=== PATIENT | male | born 1975 | race African-American/Black ===

== ENCOUNTER 2021-05-04 09:35 | Observation (INO) | payer BC ==
--- NOTE | 2021-05-04 09:42 | Event Note ---
ED Screening Note ED Screening Note: Woke up at 5A with right side facial weakness; last known pt can close both eyes voice slurred on arrival r facial weakness. right hand grasp and pedal pushes weak hx DM BG 395 no prior cva This initial assessment/diagnostic orders/clinical plan/treatment(s) is/are subject to change based on patients health status, clinical progression and re- assessment by fellow clinical providers in the ED. Further treatment and workup at subsequent clinical providers discretion. Patient/guardian urged not to elope from the ED as their condition may be serious if not clinically assessed and managed. Initial orders include: code stroke
--- NOTE | 2021-05-04 09:47 | Emergency Department Report ---
ED Neuro Deficit HPI - General Chief Complaint: Neuro Symptoms/Deficit Stated Complaint: POSSIBLE STROKE Time Seen by Provider: 05/04/21 09:39 Source: patient Mode of arrival: Ambulatory Limitations: No Limitations - History of Present Illness Initial Comments: Patient is 46 years old male with history of hypertension. Patient presented to the ER complaining of right facial droop and right upper and lower extremity numbness and weakness. Patient stated that he went to bed last night around 9 PM in his good health. Patient denied any speech problem. He also denied any ataxia or visual symptoms. Patient complaining of occipital headache. Code stroke immediately initiated and patient moved to CT for stat CT brain without contrast. Stroke telemetry neurology immediately consulted. - Related Data Home Medications: Previous Rx's Medication Instructions Recorded Last Taken Type Aspirin [Aspirin BABY CHEW TAB] 81 mg PO QDAY #30 tab.chew 05/05/21 Unknown Rx Prednisone [predniSONE 10 mg 10 mg PO .TAPER #1 tab.ds.pk 05/05/21 Unknown Rx (6-Day Pack, 21 Tabs)] Simvastatin 10 mg PO QHS #30 tablet 05/05/21 Unknown Rx Allergies/Adverse Reactions: Allergies Allergy/AdvReac Type Severity Reaction Status Date / Time No Known Allergies Allergy Unverified 05/04/21 09:42 ED Review of Systems ROS: Stated complaint: POSSIBLE STROKE Other details as noted in HPI Comment: All other systems reviewed and negative Constitutional: denies: chills, fever Respiratory: denies: cough, shortness of breath, SOB with exertion Cardiovascular: denies: chest pain, palpitations Gastrointestinal: denies: abdominal pain, nausea, vomiting Neurological: headache, weakness, numbness ED Past Medical Hx - Past Medical History Previous Medical History?: Yes Hx Hypertension: Yes - Surgical History Past Surgical History?: No - Medications Home Medications: Home Medications Medication Instructions Recorded Confirmed Last Taken Type Aspirin [Aspirin BABY CHEW TAB] 81 mg PO QDAY #30 tab.chew 05/05/21 Unknown Rx Prednisone [predniSONE 10 mg 10 mg PO .TAPER #1 tab.ds.pk 05/05/21 Unknown Rx (6-Day Pack, 21 Tabs)] Simvastatin 10 mg PO QHS #30 tablet 05/05/21 Unknown Rx ED Neuro Physical Exam - General Limitations: No Limitations General appearance: alert, in no apparent distress Suspected Stroke: Yes - Head Head exam: Present: atraumatic, normocephalic, normal inspection - Eye Eye exam: Present: normal appearance, PERRL - ENT ENT exam: Present: normal exam, normal orophraynx, mucous membranes moist - Neck Neck exam: Present: normal inspection, full ROM. Absent: tenderness, meningismus - Respiratory Respiratory exam: Present: normal lung sounds bilaterally - Cardiovascular Cardiovascular Exam: Present: regular rate, normal rhythm, normal heart sounds - GI/Abdominal GI/Abdominal exam: Present: soft, normal bowel sounds. Absent: distended, tenderness, guarding, rebound, rigid, organomegaly, mass, bruit, pulsatile mass, hernia - Extremities Exam Extremities exam: Present: normal inspection, full ROM, normal capillary refill. Absent: tenderness - Back Exam Back exam: Present: normal inspection, full ROM. Absent: CVA tenderness (R) - Neurological Exam Neurological exam: Present: alert, oriented X3. Absent: CN II-XII intact - NIHSS Assessment Interval: Baseline 1a. Level of Consciousness: alert/keenly responsive 1b. LOC Questions: answers both correctly 1c. LOC Commands: performs tasks correctly 2. Best Gaze: normal 3. Visual: no visual loss 4. Facial Palsy: partial paralysis 5b. Motor Arm Right: no drift 5a. Motor Arm Left: no drift 6a. Motor Leg Left: no drift 6b. Motor Leg Right: no drift 7. Limb Ataxia: absent 8. Sensory: normal 9. Best Language: no aphasia 10. Dysarthria: normal 11. Extinction/Inattention: no abnormality Total Score: 2 Stroke Severity: Minor Stroke - Psychiatric Psychiatric exam: Present: normal mood - Skin Skin exam: Present: warm, intact, normal color ED Course Vital Signs 05/04/21 05/04/21 05/04/21 10:26 10:30 10:35 Temperature Pulse Rate 89 84 Respiratory 14 16 Rate Blood Pressure 158/99 162/102 Blood Pressure [Left] O2 Sat by Pulse 96 94 94 Oximetry 05/04/21 05/04/21 05/04/21 10:40 10:45 10:49 Temperature Pulse Rate 88 81 Respiratory 13 15 Rate Blood Pressure 176/90 Blood Pressure [Left] O2 Sat by Pulse 97 95 100 Oximetry 05/04/21 05/04/21 05/04/21 10:50 10:56 12:56 Temperature Pulse Rate 85 101 H 83 Respiratory 13 24 13 Rate Blood Pressure 169/108 169/108 131/90 Blood Pressure [Left] O2 Sat by Pulse 97 95 94 Oximetry 05/04/21 05/04/21 05/04/21 13:00 13:06 13:10 Temperature Pulse Rate 81 85 82 Respiratory 16 13 16 Rate Blood Pressure 133/92 133/92 133/92 Blood Pressure [Left] O2 Sat by Pulse 95 96 Oximetry 05/04/21 05/04/21 05/04/21 14:26 14:30 14:36 Temperature Pulse Rate 102 H 76 74 Respiratory 15 14 14 Rate Blood Pressure 133/92 136/73 136/73 Blood Pressure [Left] O2 Sat by Pulse 97 94 96 Oximetry 05/04/21 05/04/21 05/04/21 14:40 14:46 14:50 Temperature Pulse Rate 76 90 88 Respiratory 13 12 10 L Rate Blood Pressure 136/73 136/73 136/73 Blood Pressure [Left] O2 Sat by Pulse 96 97 95 Oximetry 05/04/21 05/04/21 05/04/21 14:56 15:00 15:06 Temperature Pulse Rate 76 76 76 Respiratory 10 L 14 15 Rate Blood Pressure 136/73 138/89 133/92 Blood Pressure [Left] O2 Sat by Pulse 95 94 91 Oximetry 05/04/21 05/04/21 05/04/21 15:10 15:16 15:20 Temperature Pulse Rate 78 76 79 Respiratory 14 11 L 13 Rate Blood Pressure 133/92 136/73 136/73 Blood Pressure [Left] O2 Sat by Pulse 95 96 95 Oximetry 05/04/21 05/04/21 05/04/21 15:26 15:30 15:36 Temperature Pulse Rate 79 78 78 Respiratory 19 13 16 Rate Blood Pressure 136/73 129/91 129/91 Blood Pressure [Left] O2 Sat by Pulse 96 94 95 Oximetry 05/04/21 05/04/21 05/04/21 15:40 15:46 15:50 Temperature Pulse Rate 81 80 79 Respiratory 14 14 14 Rate Blood Pressure 129/91 129/91 129/91 Blood Pressure [Left] O2 Sat by Pulse 94 96 94 Oximetry 05/04/21 05/04/21 05/04/21 15:56 16:00 16:06 Temperature Pulse Rate 74 76 76 Respiratory 13 14 15 Rate Blood Pressure 129/91 129/91 134/86 Blood Pressure [Left] O2 Sat by Pulse 94 93 94 Oximetry 05/04/21 05/04/21 05/04/21 16:10 16:16 16:20 Temperature Pulse Rate 76 73 82 Respiratory 12 14 11 L Rate Blood Pressure 134/86 129/91 129/91 Blood Pressure [Left] O2 Sat by Pulse 92 95 95 Oximetry 05/04/21 05/04/21 05/04/21 16:26 16:30 16:36 Temperature Pulse Rate 79 79 77 Respiratory 19 20 16 Rate Blood Pressure 129/91 151/95 151/95 Blood Pressure [Left] O2 Sat by Pulse 95 96 95 Oximetry 05/04/21 05/04/21 05/04/21 16:40 16:46 16:50 Temperature Pulse Rate 82 81 76 Respiratory 11 L 12 17 Rate Blood Pressure 151/95 151/95 151/95 Blood Pressure [Left] O2 Sat by Pulse 95 95 94 Oximetry 05/04/21 05/04/21 05/04/21 16:56 17:00 17:06 Temperature Pulse Rate 76 78 73 Respiratory 15 15 16 Rate Blood Pressure 151/95 137/88 137/88 Blood Pressure [Left] O2 Sat by Pulse 92 94 93 Oximetry 05/04/21 05/04/21 05/04/21 17:10 17:16 17:20 Temperature Pulse Rate 81 93 H 78 Respiratory 13 13 14 Rate Blood Pressure 137/88 137/88 137/88 Blood Pressure [Left] O2 Sat by Pulse 95 94 96 Oximetry 05/04/21 05/04/21 05/04/21 17:26 17:30 17:36 Temperature Pulse Rate 74 76 80 Respiratory 14 11 L 14 Rate Blood Pressure 137/88 128/92 128/92 Blood Pressure [Left] O2 Sat by Pulse 93 94 92 Oximetry 05/04/21 05/04/21 05/04/21 17:40 17:46 17:50 Temperature Pulse Rate 74 77 73 Respiratory 13 14 18 Rate Blood Pressure 128/92 128/92 128/92 Blood Pressure [Left] O2 Sat by Pulse 93 93 97 Oximetry 05/04/21 05/04/21 05/04/21 17:56 18:00 18:06 Temperature Pulse Rate 76 82 75 Respiratory 18 11 L 12 Rate Blood Pressure 128/92 136/91 136/91 Blood Pressure [Left] O2 Sat by Pulse 94 95 95 Oximetry 05/04/21 05/04/21 05/04/21 18:10 19:00 19:16 Temperature Pulse Rate 78 76 78 Respiratory 11 L 13 13 Rate Blood Pressure 136/91 142/91 142/91 Blood Pressure [Left] O2 Sat by Pulse 96 96 95 Oximetry 05/04/21 05/04/21 05/04/21 19:20 19:30 19:43 Temperature 98.5 F Pulse Rate 77 72 Respiratory 14 13 18 Rate Blood Pressure 132/86 Blood Pressure 142/91 [Left] O2 Sat by Pulse 97 94 97 Oximetry 05/04/21 05/04/21 05/04/21 19:46 20:00 20:16 Temperature Pulse Rate 79 78 96 H Respiratory 15 11 L 14 Rate Blood Pressure 132/86 137/93 137/93 Blood Pressure [Left] O2 Sat by Pulse 92 93 96 Oximetry 05/04/21 20:30 Temperature Pulse Rate 94 H Respiratory 15 Rate Blood Pressure 151/89 Blood Pressure [Left] O2 Sat by Pulse 97 Oximetry - Lab Data Result diagrams: 05/04/21 10:49 05/04/21 10:49 Lab Results 05/04/21 05/04/21 05/04/21 Range/Units 09:38 10:49 10:49 WBC 5.4 (4.5-11.0) K/mm3 RBC 5.29 H (3.65-5.03) M/mm3 Hgb 15.6 H (11.8-15.2) gm/dl Hct 46.8 H (35.5-45.6) % MCV 89 (84-94) fl MCH 30 (28-32) pg MCHC 34 (32-34) % RDW 13.6 (13.2-15.2) % Plt Count 199 (140-440) K/mm3 Lymph % (Auto) 30.3 (13.4-35.0) % Bonner % (Auto) 7.6 H (0.0-7.3) % Eos % (Auto) 2.2 (0.0-4.3) % Baso % (Auto) 0.6 (0.0-1.8) % Lymph # (Auto) 1.6 (1.2-5.4) K/mm3 Bonner # (Auto) 0.4 (0.0-0.8) K/mm3 Eos # (Auto) 0.1 (0.0-0.4) K/mm3 Baso # (Auto) 0.0 (0.0-0.1) K/mm3 Seg Neutrophils % 59.3 (40.0-70.0) % Seg Neutrophils # 3.2 (1.8-7.7) K/mm3 PT 12.9 (12.2-14.9) Sec. INR 0.88 (0.87-1.13) APTT 28.6 (24.2-36.6) Sec. Thrombin Time 16.7 (15.1-19.6) Sec. VBG pH (7.320-7.420) Sodium (137-145) mmol/L Potassium (3.6-5.0) mmol/L Chloride (98-107) mmol/L Carbon Dioxide (22-30) mmol/L Anion Gap mmol/L BUN (9-20) mg/dL Creatinine (0.8-1.3) mg/dL Estimated GFR ml/min BUN/Creatinine Ratio % Glucose (75-100) mg/dL POC Glucose 395 H (70-105) mg/dL Ketones Quantitative (Negative) Calcium (8.4-10.2) mg/dL Total Bilirubin (0.1-1.2) mg/dL AST (5-40) units/L ALT (7-56) units/L Alkaline Phosphatase (35-129) units/L Total Creatine Kinase (55-170) units/L CK-MB (CK-2) (0.0-4.0) ng/mL CK-MB (CK-2) Rel Index (0-4) Troponin T (0.00-0.029) ng/mL Total Protein (6.3-8.2) g/dL Albumin (3.9-5) g/dL Albumin/Globulin Ratio % 05/04/21 05/04/21 05/04/21 Range/Units 10:49 10:49 10:49 WBC (4.5-11.0) K/mm3 RBC (3.65-5.03) M/mm3 Hgb (11.8-15.2) gm/dl Hct (35.5-45.6) % MCV (84-94) fl MCH (28-32) pg MCHC (32-34) % RDW (13.2-15.2) % Plt Count (140-440) K/mm3 Lymph % (Auto) (13.4-35.0) % Bonner % (Auto) (0.0-7.3) % Eos % (Auto) (0.0-4.3) % Baso % (Auto) (0.0-1.8) % Lymph # (Auto) (1.2-5.4) K/mm3 Bonner # (Auto) (0.0-0.8) K/mm3 Eos # (Auto) (0.0-0.4) K/mm3 Baso # (Auto) (0.0-0.1) K/mm3 Seg Neutrophils % (40.0-70.0) % Seg Neutrophils # (1.8-7.7) K/mm3 PT (12.2-14.9) Sec. INR (0.87-1.13) APTT (24.2-36.6) Sec. Thrombin Time (15.1-19.6) Sec. VBG pH 7.404 (7.320-7.420) Sodium 134 L (137-145) mmol/L Potassium 4.2 (3.6-5.0) mmol/L Chloride 99.6 (98-107) mmol/L Carbon Dioxide 22 (22-30) mmol/L Anion Gap 17 mmol/L BUN 15 (9-20) mg/dL Creatinine 0.5 L (0.8-1.3) mg/dL Estimated GFR > 60 ml/min BUN/Creatinine Ratio 30 % Glucose 362 H (75-100) mg/dL POC Glucose (70-105) mg/dL Ketones Quantitative Negative (Negative) Calcium 8.8 (8.4-10.2) mg/dL Total Bilirubin 0.40 (0.1-1.2) mg/dL AST 12 (5-40) units/L ALT 19 (7-56) units/L Alkaline Phosphatase 106 (35-129) units/L Total Creatine Kinase 104 (55-170) units/L CK-MB (CK-2) 2.5 (0.0-4.0) ng/mL CK-MB (CK-2) Rel Index 2.4 (0-4) Troponin T < 0.010 (0.00-0.029) ng/mL Total Protein 7.3 (6.3-8.2) g/dL Albumin 4.0 (3.9-5) g/dL Albumin/Globulin Ratio 1.2 % 05/04/21 Range/Units 11:53 WBC (4.5-11.0) K/mm3 RBC (3.65-5.03) M/mm3 Hgb (11.8-15.2) gm/dl Hct (35.5-45.6) % MCV (84-94) fl MCH (28-32) pg MCHC (32-34) % RDW (13.2-15.2) % Plt Count (140-440) K/mm3 Lymph % (Auto) (13.4-35.0) % Bonner % (Auto) (0.0-7.3) % Eos % (Auto) (0.0-4.3) % Baso % (Auto) (0.0-1.8) % Lymph # (Auto) (1.2-5.4) K/mm3 Bonner # (Auto) (0.0-0.8) K/mm3 Eos # (Auto) (0.0-0.4) K/mm3 Baso # (Auto) (0.0-0.1) K/mm3 Seg Neutrophils % (40.0-70.0) % Seg Neutrophils # (1.8-7.7) K/mm3 PT (12.2-14.9) Sec. INR (0.87-1.13) APTT (24.2-36.6) Sec. Thrombin Time (15.1-19.6) Sec. VBG pH (7.320-7.420) Sodium (137-145) mmol/L Potassium (3.6-5.0) mmol/L Chloride (98-107) mmol/L Carbon Dioxide (22-30) mmol/L Anion Gap mmol/L BUN (9-20) mg/dL Creatinine (0.8-1.3) mg/dL Estimated GFR ml/min BUN/Creatinine Ratio % Glucose (75-100) mg/dL POC Glucose 282 H (70-105) mg/dL Ketones Quantitative (Negative) Calcium (8.4-10.2) mg/dL Total Bilirubin (0.1-1.2) mg/dL AST (5-40) units/L ALT (7-56) units/L Alkaline Phosphatase (35-129) units/L Total Creatine Kinase (55-170) units/L CK-MB (CK-2) (0.0-4.0) ng/mL CK-MB (CK-2) Rel Index (0-4) Troponin T (0.00-0.029) ng/mL Total Protein (6.3-8.2) g/dL Albumin (3.9-5) g/dL Albumin/Globulin Ratio % - EKG Data -: EKG Interpreted by Me EKG shows normal: sinus rhythm Rate: normal Interpretation: no acute changes - Radiology Data Radiology results: report reviewed - Medical Decision Making Patient is 46 years old male with history of hypertension. Patient presented to the ER complaining of right facial droop and right upper and lower extremity numbness and weakness. Patient stated that he went to bed last night around 9 PM in his good health. Patient denied any speech problem. He also denied any a taxia or visual symptoms. Patient complaining of occipital headache. Code stroke immediately initiated and patient moved to CT for stat CT brain without contrast. Stroke telemetry neurology immediately consulted. Patient is not a TPA candidate since the onset is more than 4.5 hours. CTA neck and head is unremarkable. I discussed the patient with Dr. Begum, he agreed to admit the patient to [facility] service for further management. Critical Care Time: Yes Critical care time in (mins) excluding proc time.: 35 Critical care attestation.: If time is entered above; I have spent that time in minutes in the direct care of this critically ill patient, excluding procedure time. ED Disposition Clinical Impression: Acute CVA (cerebrovascular accident), Acute headache Disposition: ADMITTED INPATIENT Is pt being admited?: Yes Condition: Stable
--- NOTE | 2021-05-04 09:52 | Consultation ---
History of Present Illness - Reason for Consult Consult date: 05/04/21 - History of Present Illness [facility] Consult Note # Demographics Consult Type: Acute Stroke Level 2 (4.5-24 hrs) Patient Location: Emergency Room First Name: Otis Last Name: Quinn Date of : 1975 Age: 46 Gender: Male Facility: [facility] Time of Initial Page ( Time): 05/04/2021, 09:43 Time of Return Call ( Time): 05/04/2021, 09:43 # HPI History: 46yo man who presented with right face and arm weakness. He was LKN at 9PM. he awoke at 5Am with these issues as well as headache. He also has left tongue numbness. # Scores Time of exam and NIHSS (): 05/04/2021, 09:46 Level of Consciousness 1a: [0] = Alert; keenly responsive LOC Questions 1b: [0] = Answers both questions correctly LOC Commands 1c: [0] = Performs both tasks correctly Best Gaze 2: [0] = Normal Visual 3: [0] = No visual loss Facial Palsy 4: [1] = Minor paralysis Motor Arm Left 5a: [0] = No drift Motor Arm Right 5b: [0] = No drift Motor Leg Left 6a: [0] = No drift Motor Leg Right 6b: [0] = No drift Limb Ataxia 7: [0] = Absent Sensory 8: [0] = Normal Best Language 9: [0] = No aphasia Dysarthria 10: [0] = Normal Extinction and Inattention 11: [0] = No abnormality NIHSS Total: 1 # Exam Vitals: vital signs reviewed Cranial Nerves: peripheral left facial # [id number] Past Medical History: Diabetes hypertension # Data Glucose: 395 # Assessment Impression: [place] Palsy Ischemic Stroke (Acute) # Plan Thrombolytic/Intervention: NOT IV Thrombolysis or IA Intervention candidate Thrombolytic Exclusion: > 4.5 hours Intraarterial Exclusion: clinically consistent with small vessel disease Target Blood Pressure: SBP < 220 Labs: ESR lipid panel Imaging: (urgency: STAT): CT Angiogram Head and CT Angiogram Neck Imaging: (urgency: routine): MRI Brain with AND without contrast Diagnostic Test: echo without bubble study Therapy/Evaluation: NPO until swallow evaluation PT/OT evaluation speech/swallow consultation Medication: aspirin 81 mg daily DVT Prophylaxis: SCD chemical DVT prophylaxis Other: consult on-site neurology service for full work-up and evaluation recommendations permissive hypertension telemetry monitoring would not pursue stroke work-up if MRI is negative I have discussed my recommendations with the referring provider Disposition: admit Medications and Allergies Allergies Allergy/AdvReac Type Severity Reaction Status Date / Time No Known Allergies Allergy Unverified 05/04/21 09:42 Results - Labs Labs: Abnormal lab results 05/04/21 Range/Units 09:38 POC Glucose 395 H (70-105) mg/dL
--- NOTE | 2021-05-04 10:20 | Cat Scan Report ---
CT HEAD WITHOUT CONTRAST INDICATION / CLINICAL INFORMATION: Stroke symptoms. TECHNIQUE: Axial imaging performed from the skull apex through the skull base without the use of cont rast. Sagittal and coronal reformatted images. All CT scans at this location are performed using CT dose reduction for ALARA by means of automated exposure control. COMPARISON: None available. FINDINGS: CEREBRAL PARENCHYMA: Mild nonspecific chronic white matter changes are identified. No chronic infarct . No acute parenchymal abnormality is detected. HEMORRHAGE: None. EXTRA-AXIAL SPACES: Normal in size and morphology for the patient's age. VENTRICULAR SYSTEM: Normal in size and morphology for the patient's age. MIDLINE SHIFT OR HERNIATION: None. CEREBELLUM / BRAINSTEM: No significant abnormality. CALVARIUM: No significant abnormality. ORBITS: Normal as visualized. PARANASAL SINUSES / MASTOID AIR CELLS: Normal as visualized. SOFT TISSUES of HEAD: No significant abnormality. ADDITIONAL FINDINGS: None. IMPRESSION: No acute intracranial abnormality. Mild nonspecific chronic white matter changes. CRITICAL RESULT: Time of Discovery (FINANCIAL SYSTEMS ANALYST/CDT): 0910 hours Time of Communication (FINANCIAL SYSTEMS ANALYST/CDT): 0912 hours Licensed Practitioner Receiving Report: Dr. Wheeler Read-Back Performed: Yes. Signer Name: Tab Tran Jr, MD Signed: 05/04/2021 10:15 AM Workstation Name: [id number]
[2021-05-04] MEDS ORDERED: MORPHINE 4 MG/1 ML INJ ONE (10:34)
[2021-05-04] MEDS ORDERED: ONDANSETRON 4 MG/2 ML INJ ONE (10:34)
[2021-05-04] MEDS ORDERED: MORPHINE 4 MG/1 ML INJ IV ONE (10:41)
[2021-05-04] MEDS ORDERED: ONDANSETRON 4 MG/2 ML INJ IV ONE (10:41)
--- NOTE | 2021-05-04 10:50 | Cat Scan Report ---
CTA neck without and with intravenous contrast material CLINICAL HISTORY: CODE STROKE CALL ER MAIN AT 8199 OMNI 350 100 ML TECHNIQUE: Following acquisition of a timing bolus 0.625 mm thick contiguous axial scans were obtained from aort ic arch to the skull base during rapid bolus intravenous contrast infusion. In addition to evaluation of axial source images multiplanar reconstructions were produced and reviewed for this report. 3 lópez ne MIP reconstructions were produced and reviewed. Contrast dose report: Omnipaque 350: 100 ml, administered intravenously All CT examinations performed at this facility utilize modulated dose reduction, iterative reconstruc tion or weight-based dosing, as appropriate, to obtain a radiation dose which is as low as can reason ably be achieved. FINDINGS: Thoracic aorta:No abnormalities are identified along the course of the thoracic aorta..The origins of the great vessels have an unremarkable appearance. Brachiocephalic artery, left common carotid arter y origin and left subclavian artery all have an unremarkable appearance. Right carotid artery:No abnormalities are seen along the course of the RCCA, at the right carotid bif urcation or along the cervical portions of the MICHELLE. Left carotid artery: No abnormalities are noted along the course of the left common carotid artery, a t the left carotid bifurcation or along the course of the cervical segments of the LICA. Posterior circulation:The vertebral arteries have an unremarkable appearance. Left vertebral artery i s dominant. Both vertebral arteries contribute to the basilar artery origin. The basilar artery has a n unremarkable appearance. The degree of stenosis, if any, is determined utilizing NASCET like criteria. In this case there is no indication of hemodynamically significant stenosis at the carotid bifurcations or elsewhere. Evaluation of the nonvascular soft tissue structures reveal no abnormality. There is no indication of cervical lymphadenopathy. No abnormalities are seen along the course of the airway. Visualized porti ons of the parotid glands and the submandibular salivary glands have a normal appearance. Thyroid gla nd has a normal appearance. Evaluation of the lung apices reveals no evidence of lung nodule or infil trate. Evaluation of the cervical spine revealed no significant abnormalities. IMPRESSION: 1. No indication of hemodynamically significant stenosis at the carotid bifurcations or elsewhere. Signer Name: Justen Louie MD Signed: 05/04/2021 10:46 AM Workstation Name: [id number]
--- NOTE | 2021-05-04 11:01 | Cat Scan Report ---
CTA head with intravenous contrast CLINICAL HISTORY: CODE STROKE CALL ER MAIN AT 8199 OMNI 350 100 ML TECHNIQUE: 0.625 mm thick contiguous axial scans were obtained from the skull base to the skull vertex during r apid bolus administration of intravenous contrast material. Multiplanar reconstructions were produced in the coronal and sagittal planes. In addition 3 plane MIP instructions were produced and reviewed for this report. The axial source images and reconstructed images were reviewed for this report. CONTRAST DOSE REPORT: Omnipaque 350: 100 ml administered intravenously. All CT scans at this location are performed using CT dose reduction for ALARA by means of automated e xposure control. FINDINGS: Internal carotid arteries:Rebecca, cavernous, opthalmic, clinoid and supraclinoid segments of the ICAs have an unremarkable appearance. Middle cerebral arteries:Normal and symmetrical M1 segments of the middle cerebral arteries are demon strated. No abnormalities are seen on evaluation of the insular or opercular branches. Anterior cerebral arteries:Bilaterally symmetrical A1 segments are demonstrated. No abnormalities are seen along the course of the A2 segments or their visualized pericallosal branches. Vertebral arteries:Bilaterally symmetrical vertebral arteries are demonstrated. Both vertebral arteri es contribute to the basilar artery origin. Basilar artery:Basilar artery has an unremarkable appearance. Posterior cerebral arteries:Bilaterally symmetrical posterior cerebral arteries are identified. Dural sinuses: Inhomogeneous contrast enhancement is noted in the transverse sinuses bilaterally. Thi s is likely a reflection timing of scan acquisition relative to contrast administration with incomple te contrast opacification of the transverse sinuses, sigmoid sinuses and internal jugular veins. Poss ibility of nonocclusive thrombus in the transverse sinus, while considered less likely, cannot be exc luded. If clinically warranted follow-up study to include CTA head with scant timing optimized for du ral sinus evaluation or MRV with contrast could be considered. Straight sinus, superior sagittal sinu s, internal cerebral veins and vein of Winston all have an unremarkable appearance. IMPRESSION: 1. No indication of intercranial stenosis or large vessel occlusion. 2. Inhomogeneous contrast enhancement in the transverse sinuses, sigmoid sinuses and proximal interna l jugular veins. Please refer to the above discussion. IMPORTANT FINDING: Time of Communication (COTTRELL BLOWER/CDT): 6911 Central standard time Licensed Practitioner Receiving Report: Dr. Wheeler at the [facility] emergency department. Signer Name: Justen Louie MD Signed: 05/04/2021 10:56 AM Workstation Name: [id number]
[2021-05-04 11:02] LABS: Basophils % (Auto) 0.6 % (0.0-1.8); Eosinophils # (Auto) 0.1 K/mm3 (0.0-0.4); Eosinophils % (Auto) 2.2 % (0.0-4.3); Hematocrit 46.8 % (35.5-45.6); Hemoglobin 15.6 gm/dl (11.8-15.2); Lymphocytes # (Auto) 1.6 K/mm3 (1.2-5.4); Lymphocytes % (Auto) 30.3 % (13.4-35.0); Mean Corpuscular HGB Conc 34 % (32-34); Mean Corpuscular Volume 89 fl (84-94); Monocytes # (Auto) 0.4 K/mm3 (0.0-0.8); Monocytes % (Auto) 7.6 % (0.0-7.3); Platelet Count 199 K/mm3 (140-440); Red Blood Count 5.29 M/mm3 (3.65-5.03); Red Cell Distribution Width 13.6 % (13.2-15.2)
[2021-05-04 11:12] LABS: INR 0.88 (0.87-1.13)
[2021-05-04 11:13] LABS: Partial Thromboplastin Time 28.6 Sec. (24.2-36.6); Thrombin Time 16.7 Sec. (15.1-19.6)
[2021-05-04 11:20] LABS: Creatine Kinase MB 2.5 ng/mL (0.0-4.0)
[2021-05-04 11:22] LABS: Alanine Aminotransferase 19 units/L (7-56); Blood Urea Nitrogen 15 mg/dL (9-20); Calcium 8.8 mg/dL (8.4-10.2); Hemolysis Index 11
[2021-05-04 11:23] LABS: BUN/Creatinine Ratio 30
[2021-05-04] MEDS ORDERED: INSULIN REGULAR, HUMAN 100 UNITS/1 ML IV ONE (11:27)
--- NOTE | 2021-05-04 12:53 | History and Physical Report ---
History of Present Illness Chief complaint: My face, right arm, and right leg felt weak History of present illness: 46 YO Male with HTN presents to ED for evaluation. Patient reported "my face and right arm and leg felt weak". Patient states that he was in his usual state of health at bedtime around 2100 hrs. Patient states that he woke from sleep and was found to have right facial droop, and right arm and leg weakness. Patient was unable to hold a cup in his hand and was also unable to walk. Patient transported to [facility] via private vehicle for further care and evaluation of the aforementioned symptoms. The patient was seen and evaluated in the emergency department. All lab and imaging studies reviewed. Patient was found to have a neurologic deficit upon arrival. A code stroke was called. Teleneurology consulted. Patient found to have symptoms consistent with CVA. Patient placed in observation status and admitted to medical floor and initiated on CVA protocol. Patient denies fever, chills, chest pain, palpitation, productive cough, skin rash, recent contact, or known exposure to COVID-19. No prior admission for review. No medication listed at time of admission for reconciliation. Past History Past Medical History: hypertension Past Surgical History: No surgical history, Other (Reviewed) Social history: , lives with family. denies: smoking, alcohol abuse, prescription drug abuse Family history: no significant family history, other (Reviewed) Medications and Allergies Allergies Allergy/AdvReac Type Severity Reaction Status Date / Time No Known Allergies Allergy Unverified 05/04/21 09:42 Review of Systems Constitutional: no weight loss, no weight gain, no chills, no sweats Ears, nose, mouth and throat: no ear pain, no tinnitis, no nose pain Cardiovascular: no chest pain, no palpitations, no rapid/irregular heart beat, no lightheadedness Respiratory: no cough, no cough with sputum, no hemoptysis, no dyspnea on exertion Gastrointestinal: no abdominal pain, no vomiting, no diarrhea, no constipation, no change in bowel habits Genitourinary Male: no hematuria, no flank pain, no urinary frequency, no urinary hesitancy, no nocturia, no incontinence Rectal: no pain, no incontinence, no bleeding Musculoskeletal: no low back pain, no shooting leg pain Integumentary: no rash, no pruritis, no redness, no wounds, no jaundice Neurological: no head injury, no transient paralysis, no parathesias, no numbness, no seizures, no syncope, no lack of coordination Psychiatric: no anxiety, no change in sleep habits, no sleep disturbances, no change in appetite, no change in libido, no disorientation Endocrine: no cold intolerance, no polyphagia, no excessive thirst, no polydipsia, no nocturia, no flushing Hematologic/Lymphatic: no easy bruising, no easy bleeding Allergic/Immunologic: no urticaria, no allergic rhinitis, no wheezing Exam - Constitutional Vitals: Temp Pulse Resp BP Pulse Ox 101 H 24 169/108 95 05/04/21 10:56 05/04/21 10:56 05/04/21 10:56 05/04/21 10:56 General appearance: Present: no acute distress, well-nourished - EENT Eyes: Present: PERRL ENT: hearing intact, clear oral mucosa - Neck Neck: Present: supple, normal ROM - Respiratory Respiratory effort: normal Respiratory: bilateral: CTA - Cardiovascular Heart Sounds: Present: S1 & S2. Absent: rub, click - Extremities Extremities: pulses symmetrical, No edema Peripheral Pulses: within normal limits - Abdominal General gastrointestinal: Present: soft, non-tender, non-distended, normal bowel sounds Male genitourinary: Present: normal - Integumentary Integumentary: Present: clear, warm, dry - Musculoskeletal Musculoskeletal: right sided weakness - Psychiatric Psychiatric: appropriate mood/affect, intact judgment & insight - Neurologic Neurologic: CNII-XII intact, moves all extremities HEART Score - HEART Score Troponin: Troponin T < 0.010 ng/mL (0.00-0.029) 05/04/21 10:49 Results - Labs CBC & Chem 7: 05/04/21 10:49 05/04/21 10:49 Labs: Abnormal lab results 05/04/21 05/04/21 05/04/21 Range/Units 09:38 10:49 10:49 RBC 5.29 H (3.65-5.03) M/mm3 Hgb 15.6 H (11.8-15.2) gm/dl Hct 46.8 H (35.5-45.6) % Barnwell % (Auto) 7.6 H (0.0-7.3) % Sodium 134 L (137-145) mmol/L Creatinine 0.5 L (0.8-1.3) mg/dL Glucose 362 H (75-100) mg/dL POC Glucose 395 H (70-105) mg/dL 05/04/21 Range/Units 11:53 RBC (3.65-5.03) M/mm3 Hgb (11.8-15.2) gm/dl Hct (35.5-45.6) % Barnwell % (Auto) (0.0-7.3) % Sodium (137-145) mmol/L Creatinine (0.8-1.3) mg/dL Glucose (75-100) mg/dL POC Glucose 282 H (70-105) mg/dL Assessment and Plan - Patient Problems (1) Acute CVA (cerebrovascular accident) Current Visit: Yes Status: Acute Plan to address problem: CVA protocol: CT head, neuro check, seizure precautions, physical therapy consulted, Occupational Therapy consulted, speech therapy consulted, echocardiogram ordered and is pending at time of admission, carotid Doppler, antiplatelet therapy. Lipid panel, telemetry neurology consulted. (2) Transverse sinus thrombosis Current Visit: Yes Status: Acute Plan to address problem: CTA head, CTA neck, telemetry neurology consulted. MRV ordered and is pending at time of admission. Hypercoagulable work-up. (3) Hypertension Current Visit: Yes Status: Acute Qualifiers: Hypertension type: primary hypertension Qualified Code(s): I10 - Essential (primary) hypertension Plan to address problem: Monitor blood pressure every shift, continue medical management (4) DVT prophylaxis Current Visit: Yes Status: Acute Plan to address problem: SCD to bilateral lower extremities while in bed, patient is ambulatory (5) Advance care planning Current Visit: Yes Status: Acute Plan to address problem: Disease education conducted, care plan discussed, diagnoses discussed, prognosis discussed, patient is full code. Patient knowledges understanding and agreement with care plan. +30 minutes.
--- NOTE | 2021-05-04 14:16 | Magnetic Resonance Report ---
MRV brain with contrast History: Headache, cavernous sinus thrombosis. ; Technique: 3-D evaluation for MR venography of the brain. Contrast dose report: Clairscan: 17 mL administered intravenously. Findings: No priors. Asymmetry of the transverse sinuses is noted right larger than left. Normal enhancement and flow rela heather signal intensity is demonstrated bilaterally. No signs of dural sinus thrombosis seen. The superior sagittal sinus, sigmoid sinuses, internal jugular veins, internal cerebral veins, vein o f Winston, and straight sinus are all patent. Impression: No evidence of dural sinus thrombosis. Signer Name: Justen Louie MD Signed: 05/04/2021 2:12 PM Workstation Name: [id number]
--- NOTE | 2021-05-04 15:00 | Vascular Lab Report ---
DUPLEX DOPPLER ULTRASOUND CAROTID, BILATERAL INDICATION / CLINICAL INFORMATION: Stroke. Right facial droop and right-sided weakness. COMPARISON: CTA head and neck performed earlier today. FINDINGS: RIGHT CAROTID: - PLAQUE ESTIMATE (%): None. - CCA velocity: 93.8 cm/sec. - ICA peak systolic velocity: 65.9 cm/sec. - ICA/CCA PSV Ratio: 0.7 Right Vertebral Artery: Antegrade flow. LEFT CAROTID: - PLAQUE ESTIMATE: None. - CCA velocity: 104.8 cm/sec. - ICA peak systolic velocity: 62.5 cm/sec. - ICA/CCA PSV Ratio: 0.6 Left Vertebral Artery: Antegrade flow. IMPRESSION: 1. Right Internal Carotid Artery: Normal. No stenosis. 2. Left Internal Carotid Artery: Normal. No stenosis. Velocity criteria are extrapolated from diameter data as defined by the Society of Radiologists in [facility] Consensus Conference, Radiology 2003; 229;340-346. NO STENOSIS (NORMAL) * Plaque = none; ICA PSV < 125 cm/sec; ICA/CCA PSV Ratio < 2.0 <50% STENOSIS * Plaque < 50%; ICA PSV < 125 cm/sec; ICA/CCA PSV Ratio < 2.0 50-69% STENOSIS * Plaque > 50%; ICA PSV = 125-230 cm/sec; ICA/CCA PSV Ratio = 2.0-4.0 >70% BUT <100% STENOSIS * Plaque > 50%; ICA PSV > 230 cm/sec; ICA/CCA PSV Ratio > 4.0 NEAR OCCLUSION * Plaque = visible lumen; ICA PSV = high/low/none; ICA/CCA PSV Ratio = variable TOTAL OCCLUSION * Plaque = no lumen; ICA PSV = none; ICA/CCA PSV Ratio = N/A Signer Name: Keith Ta MD Signed: 05/04/2021 2:55 PM Workstation Name: [id number]
[2021-05-04] MEDS ORDERED: METOCLOPRAMIDE 10 MG TAB PO PRN (16:00)
[2021-05-04] MEDS ORDERED: oxyCODONE /ACETAMINOPHEN 5-325MG TAB PO PRN (16:00)
[2021-05-04] MEDS ORDERED: PROMETHAZINE 25 MG RECT SUPP PR PRN (16:00)
[2021-05-04] MEDS ORDERED: MAGNESIUM HYDROXIDE (MOM) ORAL LIQD UDC PO PRN (16:00)
[2021-05-04] MEDS ORDERED: HYDROmorphone 1 MG/1 ML INJ IV PRN (16:00)
[2021-05-04] MEDS ORDERED: ACETAMINOPHEN 325 MG TAB PO PRN (16:00)
[2021-05-04] MEDS ORDERED: ONDANSETRON 4 MG/2 ML INJ IV PRN (16:00)
[2021-05-05 06:33] LABS: Chol/HDL Ratio 3.66 %
[2021-05-05 08:43] LABS: Bilirubin,Urine NEG (Negative); Blood,Urine NEG (Negative); Color,Urine Yellow (Yellow); Protein,Urine <15 mg/dL mg/dL (Negative); RBC,Urine < 1.0 /HPF (0.0-6.0); Urobilinogen,Urine < 2.0 mg/dL (<2.0)
[2021-05-05 08:45] LABS: WBC,Urine < 1.0 /HPF (0.0-6.0)
[2021-05-05] MEDS ORDERED: ASPIRIN 325 MG TAB PO SCH (10:00)
--- NOTE | 2021-05-05 11:15 | Electrocardiograph Report ---
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
--- NOTE | 2021-05-05 11:18 | Discharge Summary ---
Providers - Providers Date of Admission: 05/04/21 13:05 Attending physician: JOSIE BARRIENTOS 05/04/21 13:05 Occupational Therapy Evaluate and Treat [CONS] Routine Comment: Reason For Exam: Neuro deficits Physical Therapy Evaluation and Treat [CONS] Routine Comment: Reason For Exam: Neuro deficits Speech Therapy Evaluation and Treat [CONS] Routine Reason For Exam: swallow eval Primary care physician: MINNA ORANTES Hospitalization Condition: Stable - Discharge Diagnoses (1) Acute CVA (cerebrovascular accident) Status: Acute (2) Transverse sinus thrombosis Status: Acute (3) Hypertension Status: Acute Qualifiers: Hypertension type: primary hypertension Qualified Code(s): I10 - Essential (primary) hypertension (4) DVT prophylaxis Status: Acute (5) Advance care planning Status: Acute Exam - Constitutional Vitals: Temp Pulse Resp BP Pulse Ox 98.4 F 70 20 152/93 96 05/05/21 05:51 05/05/21 05:51 05/05/21 05:51 05/05/21 05:51 05/05/21 08:09 Plan Follow up with: MINNA ORANTES MD [Primary Care Provider] - 3-5 Days Prescriptions: Aspirin [Aspirin BABY CHEW TAB] 81 mg PO QDAY #30 tab.chew Prednisone [predniSONE 10 mg (6-Day Pack, 21 Tabs)] 10 mg PO .TAPER #1 tab.ds.pk Simvastatin 10 mg PO QHS #30 tablet
[2021-05-05 12:48] VITALS: BP 140/94
[2021-05-07 14:00] LABS: Protein S, Free 111 % normal (57-171); Protein S, Total 107 % normal (70-140)
== END 2021-05-05 13:28 | disposition home or self-care (01) ==
LOC: ED 09:35 → 3A 13:05
PROVIDERS: ADMIT Internal Medicine; ATTEND Internal Medicine
DX: I63.9 Cerebral infarction, unspecified (principal); G08 Intracranial and intraspinal phlebitis and thrombophlebitis; I10 Essential (primary) hypertension; R29.702 NIHSS score 2; R51.9 Headache, unspecified; Z79.899 Other long term (current) drug therapy; Z98.890 Other specified postprocedural states; Z79.82 Long term (current) use of aspirin
CPT/HCPCS: 36415; 70450; 70496; 70498; 70545; 80053; 80061; 81001; 82010; 82024; 82550; 82553; 82805; 82962; 84484; 85025; 85301; 85305; 85610; 85670; 85730; 92610; 93005; 93306; 93880; 96374; 96375; 97161; 99291; A9270; A9575; G0378; J1170; J2270; J2405; Q9967; J1815